=== PATIENT | female | born 1960 | race Caucasian/White ===

== ENCOUNTER 2020-03-24 15:05 | Outpatient (CLI) | payer MEDICARE, MEDICAID, SELFPAY ==
--- NOTE | 2020-03-24 15:11 | USCV_ITS ---
Bradley Farley Age: 60 Gender: F : 1960 Exam Date: 03/24/2020 14:56 Ordering Phys: Jared Braun Technologist: Rosa Elena Lopez Exam Location: [facility] [place] Indication: PAD RIGHT LEFT Pressure (mmHg) Waveform Pressure (mmHg) Waveform 103.00 Above Knee 97.00 Below Knee 1.11 110.00 DIRT CONTRACTOR 105.00 101.00 DPA 103.00 1.18 Ankle/Brachial Index 1.13 0.38 Pre-Exercise Toe Pressure 0.73 FINDINGS Pt could not tolerate the upper lt thigh cuff. Normal resting ABIs bilaterally Normal resting TBI on the left side Diminished resting TBI on the right side CONCLUSIONS No significant arterial obstruction on the left side Features suggestive of moderate peripheral artery disease possibly involving the distal vessels on the right side Dr Ralph Das MD FAC (Electronically Signed) Final Date: 24 March 2020 19:53 S
== END 2020-03-24 15:06 | disposition home or self-care (01) ==
LOC: RAD 15:08
PROVIDERS: PCP Family Medicine; Visit Provider Internal Medicine Infectious Disease
DX: I73.9 Peripheral vascular disease, unspecified (principal)
CPT/HCPCS: 93923

== ENCOUNTER 2022-05-17 22:56 | Emergency (ER) | payer MEDICARE, MEDICAID, SELFPAY ==
--- NOTE | 2022-05-17 22:57 | CTR_ITS ---
PROCEDURE INFORMATION: Exam: CT Head Without Contrast Exam date and time: 05/18/2022 2:11 AM Age: 62 years old Clinical indication: Altered mental status/memory loss; Additional info: AMS TECHNIQUE: Imaging protocol: Computed tomography of the head without contrast. Radiation optimization: All CT scans at this facility use at least one of these dose optimization techniques: automated exposure control; mA and/or kV adjustment per patient size (includes targeted exams where dose is matched to clinical indication); or iterative reconstruction. COMPARISON: CT head wo con* [id number] 04/04/2019 18:21 RADIATION DOSE METRICS: Total DLP (mGy-cm): 1145.68 FINDINGS: Brain: No focal hemorrhage or midline shift is identified. The ventricles and parenchyma show mild atrophy and chronic bicerebral white matter ischemic change. Cerebral ventricles: No ventriculomegaly or evidence of hydrocephalus. Paranasal sinuses: No evidence of acute sinusitis. Mastoid air cells: Visualized mastoid air cells are well aerated. Bones/joints: No displaced skull fracture is noted. Soft tissues: Unremarkable. Vasculature: Diffuse vascular calcifications are present. CT/CT head wo con* [id number] IMPRESSION: 1. No acute intracranial abnormality. 2. Mild age-related changes.
--- NOTE | 2022-05-17 22:57 | XRR_ITS ---
PROCEDURE INFORMATION: Exam: XR Chest Exam date and time: 05/17/2022 11:07 PM Age: 62 years old Clinical indication: Other: AMS TECHNIQUE: Imaging protocol: Radiologic exam of the chest. Views: 1 view. COMPARISON: CR XR chest 1V [id number] 04/02/2018 11:45 AM FINDINGS: Lungs: Unremarkable. No consolidation. Pleural spaces: Unremarkable. No pleural effusion. No pneumothorax. Heart/Mediastinum: Unremarkable. No cardiomegaly. Bones/joints: Unremarkable. XR/XR chest 1V portable [id number] IMPRESSION: No acute findings.
[2022-05-17 22:58] VITALS: BP 92/58; PULSE 84; RESP 24; TEMP 34.7; O2SAT 92; BMI 17.6
--- NOTE | 2022-05-17 23:02 | ECG_ITS ---
[facility] Test Date: 2022-05-17 Pat Name: Bradley Farley Department: Room: Gender: Female Feeder Loader: : 1960 Requested By: Billy Lewis Order Number: [id number] Nilesh MD: Abbi Pennington M.D. Measurements Intervals [place] Rate: 87 P: 71 MN: 124 QRS: 72 QRSD: 102 T: 82 QT: 450 QTc: 542 Interpretive Statements SINUS RHYTHM VOLTAGE CRITERIA FOR LVH [MEETS CRITERIA IN ONE OF: R(aVL), S(V1), R(V5), R(V5/V6)+S(V1)] MODERATE ST DEPRESSION [0.05+ mV ST DEPRESSION] PROLONGED QT INTERVAL Compared to ECG 04/01/2018 21:36:13 ST (T wave) deviation now present Prolonged QT interval now present Electronically Signed On 05-18-2022 9:16:15 WEBBING SUPERVISOR by Abbi Pennington M.D. [id number]
--- NOTE | 2022-05-17 23:07 | ED_ITS ---
HPI - Altered Mental Status General: Chief Complaint: Altered Mental Status Stated Complaint: AMS Time Seen by Provider: 05/17/22 22:57 Source: patient and EMS Mode of arrival: EMS Limitations: no limitations History of Present Illness: 62-year-old female is brought here by EMS got called out for general sickness and found her she was patient here is unresponsive from the ketamine not able to get any history they state that patient lived in a trailer with no electricity and the person there was not able to give much history either besides that she was not feeling well all day on the bathroom floor not really responding she then became combative is been confused they had to give her ketamine in route. Review of Systems General: Reports: ROS unobtainable due to mental status PFSH ED PFSH: Social History Smoking and tobacco status: current every day smoker Procedures Central Line Placement Right IJ: Time Out Performed: Yes Patient Placed on Monitor/Pulse Ox: Yes MD Prep: mask, gown and gloves Central Line Prep: Chlorhexidine scrub Ultrasound Used for Placement: Yes Central Line Lumen Inserted: triple Post Procedure: sutured in place, good blood return, all ports aspirated, flushed, capped and sterile dressing applied Post Procedure X-Ray: tip of catheter in good position and no pneumothorax seen Patient Tolerated Procedure: well Complications: none Intubation Time out performed: Yes sedative: Etomidate Mg Given: 20 paralytic: Succinylcholine Mg Given: 75 Laryngoscope: Edgar ET Tube Size: 8 ET Tube Uncuffed: No Tube Secured Depth (cm): 26 Tube Secured Location: lips Tube Placement Confirmation: visualized tube passing through cords, equal breath sounds bilaterally, no breath sounds over epigastrium and confirmation by capnometry Patient Tolerated Procedure: well Intubation Complications: none Course Vital Signs: Vital signs: Vital Signs Temperature 94.4 F L 05/17/22 22:58 Pulse Rate 84 05/17/22 22:58 Respiratory Rate 30 H 05/18/22 01:08 Blood Pressure 92/58 05/17/22 22:58 Pulse Oximetry 92 05/17/22 22:58 Fraction of Inspir ed Oxygen 30 05/18/22 01:08 MDM - Altered Mental Status Medical Decision Making Patient originally presented here with some confusion and agitation altered mental status her drug screen was positive for methamphetamine she would answer some questions but became combative patient was given ketamine in route I had to intubate her as she would not stay still for any testing patient was normotensive after intubation and propofol drip to keep her sedated she became hypotensive central line was placed patient placed on Levophed she was taken to CT scan therefore after she does have a UTI with an elevated lactate on the CT scan she was found to have an intra-abdominal hemorrhage. No history was really available from EMS no known assault but does appear to have a possible splenic lack on her CT patient's hemoglobin originally was 9.2 we will give blood at this time [facility] Lab Data 05/18/22 00:13 05/17/22 23:23 Radiology Impressions Duplex Scan Lower Extremity Artery 05/17/22 23:10 IMPRESSION: No stenosis or occlusion. Chest/Abdomen/Pelvis CT 05/18/22 00:38 IMPRESSION: 1. The endotracheal tube tip is at the erwin deviating towards the right mainstem bronchus. 2. There is a background of centrilobular emphysema, mild bronchiectasis and mild pulmonary fibrosis. 3. There are some patchy and strandy opacities present in the lung bases bilaterally, left slightly more prominent than right likely representing atelectasis. 4. There is a small left pleural effusion seen. IMPRESSION: 1. There is an extensive retroperitoneal and intra-abdominal and pelvic hematoma and hemorrhagic fluid collection as described above. 2. There is a small hypoattenuation subcapsular lesions seen within the spleen that could represent a benign cyst or hemangioma. However, its attenuation values are isodense with the adjacent hemorrhagic fluid and a splenic laceration cannot be excluded (AAST grade 1). 3. Diverticulosis of the descending and sigmoid colon ADDENDUM: 05/18/22 0303 CRITICAL RESULT: THIS REPORT CONTAINS FINDINGS THAT MAY BE CRITICAL TO PATIENT CARE. The findings were verbally communicated via telephone conference with REGULO Hagan at 3:01 AM GROUP THERAPY COUNSELOR on 05/18/2022. The findings were acknowledged and understood. Chest X-Ray 05/18/22 01:05 IMPRESSION: 1. Right internal jugular vein central venous line placed with tip at the level of the superior vena cava. 2. Endotracheal tube tip 2.2 cm from the erwin. Laboratory Results WBC 15.8 10^3/uL (4.0-10.0) H 05/18/22 00:13 RBC 3.10 10^6/uL (4.1-5.3) L 05/18/22 00:13 Hgb 9.1 g/dL (11.5-15.3) L 05/18/22 00:13 Hct 28.2 % (37.0-47.0) L 05/18/22 00:13 MCV 91.0 fl (81-99) 05/18/22 00:13 MCH 29.4 pg (28.0-34.0) 05/18/22 00:13 MCHC 32.3 g/dL (30.0-36.0) 05/18/22 00:13 RDW 12.5 % (12.1-15.1) 05/18/22 00:13 Plt Count 229 10^3/cmm (130-400) 05/18/22 00:13 MPV 9.6 fL (7.4-10.4) 05/18/22 00:13 Neut % (Auto) 89.5 % 05/18/22 00:13 Lymph % (Auto) 5.9 % 05/18/22 00:13 [place] % (Auto) 3.2 % 05/18/22 00:13 Eos % (Auto) 0.1 % 05/18/22 00:13 Baso % (Auto) 0.3 % 05/18/22 00:13 Neut # (Auto) 14.17 10^3/uL (1.8-7.7) H 05/18/22 00:13 Lymph # (Auto) 0.9 10^3/uL (0.8-4.8) 05/18/22 00:13 [place] # (Auto) 0.5 10^3/uL (0.2-0.9) 05/18/22 00:13 Eos # (Auto) 0.0 10^3/uL (0.0-0.8) 05/18/22 00:13 Baso # (Auto) 0.0 10^3/uL (0.0-0.1) 05/18/22 00:13 Nucleated RBC % (auto) 0 % 05/18/22 00:13 Nucleated RBCs # 0.0 /100WBC 05/18/22 00:13 PT 15.10 SECONDS (12.1-14.9) H 05/17/22 23:23 INR 1.15 (0.8-1.2) 05/17/22 23:23 Specimen Type Arterial 05/17/22 23:59 Sample Site Femoral, left 05/17/22 23:59 ABG pH 7.30 (7.35-7.45) L 05/17/22 23:59 ABG pCO2 35.4 mmHg (35-45) 05/17/22 23:59 ABG pO2 137.0 mmHg (80.0-100.0) H 05/17/22 23:59 ABG HCO3 17.3 mmol/L (22-26) L 05/17/22 23:59 ABG Base Excess -8.4 mmol/L (-2.0-2.0) L 05/17/22 23:59 Lester Test N/a 05/17/22 23:59 Hematocrit 31.1 % (37-47) L 05/17/22 23:59 O2 Delivery Device Nc 05/17/22 23:59 O2 Liters/Min 2.0 % 05/17/22 23:59 Educational Program Assistant ID Castro 05/17/22 23:59 Sodium 128 mmol/L (136-145) L 05/17/22 23:23 Potassium 3.4 mmol/L (3.5-5.1) L 05/17/22 23:23 Chloride 87 mmol/L (98-107) L 05/17/22 23:23 Carbon Dioxide 15 mmol/L (22-29) L 05/17/22 23:23 Anion Gap 29.4 (5-19) H 05/17/22 23:23 BUN 18 mg/dL (8-23) 05/17/22 23:23 Creatinine 1.4 mg/dL (0.5-0.9) H 05/17/22 23:23 GFR Calculation 37.9 mL/min (90-130) L 05/17/22 23:23 Glucose 292 mg/dL (65-115) H 05/17/22 23:23 Calculated Osmolality 279 mOsm/kg (285-295) L 05/17/22 23:23 Lactate 8.6 mmol/L (0.5-2.2) H* 05/18/22 01:53 Calcium 8.4 mg/dL (8.5-10.5) L 05/17/22 23: Magnesium 2.3 mg/dL (1.7-2.3) 05/17/22 23: Total Bilirubin 0.3 mg/dL (0.15-1.2) 05/17/22 23: AST 29 U/L (0-32) 05/17/22 23: ALT 24 U/L (0-33) 05/17/22 23: Alkaline Phosphatase 57 U/L (35-105) 05/17/22 23: Creatine Kinase 116 U/L (26-192) 05/17/22 23: Troponin T Baseline 33 ng/L (0-10) H 05/17/22 23: Troponin T 120 Minute 59.50 ng/L (0-10) H 05/18/22 01: Delta Troponin T 26.50 ABS# (0-10) H* 05/18/22 01: Total Protein 5.8 g/dL (6.6-8.7) L 05/17/22: Albumin 3.6 g/dL (3.5-5.2) 05/17/22: Globulin 2.2 g/dL (1.3-4.6) 05/17/22: TSH 3.49 uIU/mL (0.27-4.20) 05/17/22 23: Urine Color Yellow (Yellow) 05/17/22 23:05 Urine Appearance Hazy (CLEAR) A 05/17/22 23: Urine pH 6 (5-7) 05/17/22 23:05 Ur Specific [place] 1.020 (1.005-1.030) 05/17/22 23:05 Urine Protein 3+ (Negative) H 05/17/22 23:05 Urine Glucose (UA) Norm (Normal) 05/17/22 23:05 Urine Ketones Negative (Negative) 05/17/22 23:05 Urine Blood 3+ (Negative) H 05/17/22 23:05 Urine Nitrate Negative (Negative) 05/17/22 23:05 Urine Bilirubin Neg (Negative) 05/17/22 23: Urine Urobilinogen Norm mg/dL (Negative) 05/17/22 23:05 Ur Leukocyte Esterase 2+ (Negative) H 05/17/22 23:05 Urine RBC 0-4 /hpf (0-2) H 05/17/22 23:05 Urine WBC 40-55 /hpf (0-5) H 05/17/22 23:05 Ur Squamous Epith Cells 0-4 /hpf (0-5) H 05/17/22 23:05 Amorphous Sediment Not Reportable 05/17/22 23:05 Urine Bacteria 4+ /hpf (NONE) H 05/17/22 23:05 Salicylates < 0.3 mg/dL (3-10) L 05/17/22 23:23 Urine Opiates Screen Negative ng/mL (Negative) 05/17/22 23:05 Acetaminophen < 5.0 ug/mL (10-30) L 05/17/22 23:23 Ur Barbiturates Screen Negative ng/mL (Negative) 05/17/22 23:05 Ur Phencyclidine Scrn Negative ng/mL (Negative) 05/17/22 23:05 Ur Amphetamines Screen Positive ng/mL (Negative) H 05/17/22 23:05 U Benzodiazepines Scrn Negative ng/mL (Negative) 05/17/22 23:05 Urine Cocaine Screen Negative ng/mL (Negative) 05/17/22 23:05 U Marijuana (THC) Screen Positive ng/mL (Negative) H 05/17/22 23:05 Ethyl Alcohol < 10 mg/dL (0-10) 05/17/22 23:23 Serum Ketones Negative (Negative) 05/18/22 00:13 Influenza Type A Ag negative (Negative) 05/17/22 23:17 Influenza Type B Ag negative (Negative) 05/17/22 23:17 SARS-CoV-2 Ag (Rapid) negative (Negative) 05/17/22 23:17 Critical Care Time Critical Care Time: Critical Care Time: Yes Total Critical Care Time: 75 Attestation: The high probability of a clinically significant, sudden or life threatening deterioration of the patient's cv system(s) required my full and direct attention, intervention and personal management. The critical care time is as shown. This time is in addition to time spent performing any reported procedures but includes the following: [x] Data and vital sign review and interpretation [x] Patient assessment, examination and intervention [x] Documentation [x] Medication orders and management Discharge Plan Discharge Patient Disposition: Xfer Short-Term Hosp Clinical Impression: Altered mental status, Methamphetamine abuse, UTI (urinary tract infection), Acidosis, lactic, Intra abdominal hemorrhage Condition: Stable Prescriptions: No Action clonidine HCl 0.1 mg tablet See Rx Instructions .ROUTE .COMPLEX Qty: 60 0RF Dose Instruction: TAKE ONE TABLET BY MOUTH TWICE DAILY Rx Instructions: TAKE ONE TABLET BY MOUTH TWICE DAILY nifedipine 90 mg tablet extended release See Rx Instructions .ROUTE .COMPLEX Qty: 30 0RF Dose Instruction: TAKE ONE TABLET BY MOUTH EVERY DAY Rx Instructions: TAKE ONE TABLET BY MOUTH EVERY DAY risperidone 0.5 mg tablet See Rx Instructions .ROUTE .COMPLEX Qty: 90 0RF Dose Instruction: TAKE ONE TABLET BY MOUTH EVERY MORNING AND TWO tablets EVERY EVENING Rx Instructions: TAKE ONE TABLET BY MOUTH EVERY MORNING AND TWO tablets EVERY EVENING venlafaxine 150 mg capsule,extended release 24hr See Rx Instructions .ROUTE .COMPLEX Qty: 30 0RF Dose Instruction: TAKE ONE CAPSULE BY MOUTH DAILY with 75 MG Rx Instructions: TAKE ONE CAPSULE BY MOUTH DAILY with 75 MG atenolol 50 mg tablet See Rx Instructions .ROUTE .COMPLEX Qty: 60 0RF Dose Instruction: TAKE ONE TABLET BY MOUTH TWICE DAILY Rx Instructions: TAKE ONE TABLET BY MOUTH TWICE DAILY venlafaxine 75 mg capsule,extended release 24hr See Rx Instructions .ROUTE .COMPLEX Qty: 30 0RF Dose Instruction: TAKE ONE CAPSULE BY MOUTH DAILY with 150mg Rx Instructions: TAKE ONE CAPSULE BY MOUTH DAILY with 150mg celecoxib 200 mg capsule See Rx Instructions .ROUTE .COMPLEX Qty: 30 0RF Dose Instruction: TAKE ONE CAPSULE BY MOUTH EVERY DAY Rx Instructions: TAKE ONE CAPSULE BY MOUTH EVERY DAY Referrals: Gricelda Boucher MD [Primary Care Provider] - Coding Level of Care Code ED Assessment Coordinator for Shani Dallas
--- NOTE | 2022-05-17 23:10 | USR_ITS ---
PROCEDURE INFORMATION: Exam: US Duplex Lower Extremity Arteries Exam date and time: 05/17/2022 11:19 PM Age: 62 years old Clinical indication: Pain; Leg, lower; Bilateral; Additional info: Leg pain TECHNIQUE: Imaging protocol: Real-time ultrasound scan of the arteries of the bilateral lower extremities with 2-D ngo scale, color Doppler flow and spectral waveform analysis. Images documented and saved. COMPARISON: MRI Leg w/wo LEFT [id number] 03/20/2016 11:05 AM FINDINGS: Right common femoral artery: No occlusion or significant stenosis. Normal waveform. Right superficial femoral artery: No occlusion or significant stenosis. Normal waveform. Right popliteal artery: No occlusion or significant stenosis. Normal waveform. Right calf/foot arteries: No occlusion or significant stenosis in the visualized arteries. Biphasic waveform of the posterior tibial artery. Dorsalis pedis artery is patent with monophasic waveform. Left common femoral artery: No occlusion or significant stenosis. Normal waveform. Left superficial femoral artery: No occlusion or significant stenosis. Normal waveform. Left popliteal artery: No occlusion or significant stenosis. Normal waveform. Left calf/foot arteries: No occlusion or significant stenosis in the visualized arteries. Dorsalis pedis artery is patent. Biphasic waveforms of the posterior tibial and dorsalis pedis arteries. US/[place] [id number] IMPRESSION: No stenosis or occlusion.
[2022-05-17] MEDS: sodium chloride 0.9% 1,000 ML 999 ML IV (23:28)
[2022-05-17 23:30] VITALS: BP 111/70; PULSE 102; RESP 19; O2SAT 100
[2022-05-17 23:43] LABS: INR 1.15 (0.8-1.2)
[2022-05-17 23:53] LABS: Troponin(5th) Baseline 33 ng/L (0-10)
[2022-05-17] MEDS: haloperidol inj 5 mg/mL INJ 1 mL IVP (23:53)
[2022-05-17] MEDS: LORazepam 2 mg/mL INJ 1 mL 1 MG IVP (23:54)
[2022-05-18] VITALS (15 sets, daily range): BP systolic 63–147; BP diastolic 42–90; PULSE 82–105; RESP 14–30; TEMP 33–34.8; O2SAT 94–100
[2022-05-18 00:03] LABS: Influenza A by IFA negative (Negative); Influenza B by IFA negative (Negative); SARS Covid-2 Antigen negative (Negative)
[2022-05-18 00:05] LABS: Alanine Aminotransferase 24 U/L (0-33); Albumin Level 3.6 g/dL (3.5-5.2); Alkaline Phosphatase 57 U/L (35-105); Aspartate Amino Transferase 29 U/L (0-32); Blood Urea Nitrogen 18 mg/dL (8-23); Calcium 8.4 mg/dL (8.5-10.5); Carbon Dioxide 15 mmol/L (22-29); Chloride 87 mmol/L (98-107); Creatine Phosphokinase 116 U/L (26-192); Globulin 2.2 g/dL (1.3-4.6); Glomerular Filtration Rate 37.9 mL/min (90-130); Glucose 292 mg/dL (65-115); Magnesium 2.3 mg/dL (1.7-2.3); Osmolality Calculated 279 mOsm/kg (285-295); Sodium 128 mmol/L (136-145); Thyroid Stimulating Hormone 3.49 uIU/mL (0.27-4.20); Total Bilirubin 0.3 mg/dL (0.15-1.2); Total Protein 5.8 g/dL (6.6-8.7)
[2022-05-18 00:07] LABS: Acetaminophen < 5.0 ug/mL (10-30); Alcohol Level < 10 mg/dL (0-10); Anion Gap 29.4 (5-19); Potassium 3.4 mmol/L (3.5-5.1); Salicylate < 0.3 mg/dL (3-10)
[2022-05-18 00:18] LABS: Basophils % 0.3 %; Eosinophils % 0.1 %; Hematocrit 28.2 % (37.0-47.0); Hemoglobin 9.1 g/dL (11.5-15.3); Lymphocytes # 0.9 10^3/uL (0.8-4.8); Lymphocytes % 5.9 %; Mean Corpuscular HGB Conc 32.3 g/dL (30.0-36.0); Mean Corpuscular Hemoglobin 29.4 pg (28.0-34.0); Mean Platelet Volume 9.6 fL (7.4-10.4); Monocytes # 0.5 10^3/uL (0.2-0.9); Monocytes % 3.2 %; Neutrophils # 14.17 10^3/uL (1.8-7.7); Neutrophils % 89.5 %; Nucleated Red Blood Cells % 0 %; Platelet Count 229 10^3/cmm (130-400); Red Cell Distribution Width 12.5 % (12.1-15.1); White Blood Count 15.8 10^3/uL (4.0-10.0)
[2022-05-18 00:31] LABS: Ketone (Acetest) Serum Negative (Negative)
--- NOTE | 2022-05-18 00:38 | CTR_ITS ---
PROCEDURE INFORMATION: Exam: CT Chest With Contrast; Diagnostic Exam date and time: 05/18/2022 2:18 AM Age: 62 years old Clinical indication: Other: AMS; Patient HX: Patient sedated and intubated, in full restraints TECHNIQUE: Imaging protocol: Diagnostic computed tomography of the chest with contrast. Radiation optimization: All CT scans at this facility use at least one of these dose optimization techniques: automated exposure control; mA and/or kV adjustment per patient size (includes targeted exams where dose is matched to clinical indication); or iterative reconstruction. Contrast material: OMNI 350; Contrast volume: 70 ml; Contrast route: INTRAVENOUS (IV); COMPARISON: CR (CHEST, ) 05/18/2022 1:08 AM RADIATION DOSE METRICS: Total DLP (mGy-cm): 262.1 FINDINGS: Tubes, catheters and devices: The endotracheal tube tip is at the erwin directed to the right mainstem bronchus. Lungs: There is a background of centrilobular emphysema and mild bronchiectasis. Pulmonary fibrosis seen. There patchy and hazy opacities present in the lung bases bilaterally, left more prominent than right likely representing atelectasis. Pleural spaces: Small left pleural effusion Heart: Unremarkable. No cardiomegaly. No pericardial effusion. Coronary arteries: Mild coronary artery calcifications are seen. Lymph nodes: Unremarkable. No enlarged lymph nodes. Vasculature: Unremarkable. No aortic aneurysm. Bones/joints: Unremarkable. No acute fracture. Soft tissues: Unremarkable. COMMENTS: In the absence of a history or active diagnosis of lung cancer, it is recommended that this patient with emphysema be evaluated for enrollment in a low dose CT lung cancer screening program. PROCEDURE INFORMATION: Exam: CT Abdomen And Pelvis With Contrast Exam date and time: 05/18/2022 2:18 AM Age: 62 years old Clinical indication: Other: AMS; Patient HX: Patient sedated and intubated, in full restraints TECHNIQUE: Imaging protocol: Computed tomography of the abdomen and pelvis with contrast. Radiation optimization: All CT scans at this facility use at least one of these dose optimization techniques: automated exposure control; mA and/or kV adjustment per patient size (includes targeted exams where dose is matched to clinical indication); or iterative reconstruction. Contrast material: OMNI 350; Contrast volume: 70 ml; Contrast route: INTRAVENOUS (IV); COMPARISON: CR (CHEST, ) 05/18/2022 1:08 AM RADIATION DOSE METRICS: Total DLP (mGy-cm): 469.6 FINDINGS: Tubes, catheters and devices: A Rose catheter is present. Liver: Normal. No mass. Gallbladder and bile ducts: Normal. No calcified stones. No ductal dilation. Pancreas: Normal. No ductal dilation. Spleen: There is a small hypoattenuation lesions seen in the posterosuperior aspect of the spleen that may represent a contiguous cyst. However, the attenuation values are isodense with the adjacent hemorrhagic fluid and a splenic laceration cannot be excluded (AAST grade 1). Adrenal glands: Normal. No mass. Kidneys and ureters: Normal. No hydronephrosis. Stomach and bowel: Diverticula are seen on the descending and sigmoid colon. There are no inflammatory changes seen to suggest diverticulitis. Appendix: No evidence of appendicitis. Intraperitoneal space: See Soft tissues finding. Vasculature: Unremarkable. No abdominal aortic aneurysm. Lymph nodes: Unremarkable. No enlarged lymph nodes. Urinary bladder: The bladder appears decompressed. Reproductive: Unremarkable as visualized. Bones/joints: Unremarkable. No acute fracture. Soft tissues: There is mixed attenuation fluid seen within the retroperitoneal fat and fascia (62 HU) compatible with hemorrhagic fluid. Mixed attenuation fluid is seen within the abdomen on the left extending to the level of the left iliac crest compatible with prominent intra-abdominal hematoma. Overall, the hematoma extends approximately 19.7 cm craniocaudal dimension by 9.3 cm AP dimension and 9.2 cm transverse dimension. Intermediate attenuation fluid is seen within left pericolic gutter extending into the pelvis ([address]). CT/CT chest abd pel w con* IMPRESSION: 1. The endotracheal tube tip is at the erwin deviating towards the right mainstem bronchus. 2. There is a background of centrilobular emphysema, mild bronchiectasis and mild pulmonary fibrosis. 3. There are some patchy and strandy opacities present in the lung bases bilaterally, left slightly more prominent than right likely representing atelectasis. 4. There is a small left pleural effusion seen. IMPRESSION: 1. There is an extensive retroperitoneal and intra-abdominal and pelvic hematoma and hemorrhagic fluid collection as described above. 2. There is a small hypoattenuation subcapsular lesions seen within the spleen that could represent a benign cyst or hemangioma. However, its attenuation values are isodense with the adjacent hemorrhagic fluid and a splenic laceration cannot be excluded (AAST grade 1). 3. Diverticulosis of the descending and sigmoid colon
[2022-05-18 00:41] LABS: ABG PCO2 35.4 mmHg (35-45); Arterial Blood Gas Hematocrit 31.1 % (37-47); Base Excess ABG -8.4 mmol/L (-2.0-2.0); Blood Gas Operator Identificat JB; Blood Gas Sample Site Femoral, left; Blood Gas Sample Type Arterial; HCO3 ABG 17.3 mmol/L (22-26); Oxygen Device NC
[2022-05-18] MEDS: etomidate 2 mg/mL INJ SDV 10 mL 20 MG IVP (00:47)
[2022-05-18] MEDS: succinylcholine 20 mg/mL SDV 10mL 75 MG IVP (00:48)
[2022-05-18] MEDS: propofol 1,000 MG/100 ML INJ 1.36 MG IV (00:58)
--- NOTE | 2022-05-18 01:05 | XRR_ITS ---
PROCEDURE INFORMATION: Exam: XR Chest Exam date and time: 05/18/2022 1:08 AM Age: 62 years old Clinical indication: Other vascular access device placement or adjustment; Central line, non-tunnelled TECHNIQUE: Imaging protocol: Radiologic exam of the chest. Views: 1 view. COMPARISON: CR (CHEST, ) 05/17/2022 11:07 PM FINDINGS: Tubes, catheters and devices: An endotracheal tube is placed with its tip 2.2 cm from the erwin. A right internal jugular vein central venous line is placed with its tip at the level of the superior vena cava. EKG leads overlie the chest. Lungs: Unremarkable. No consolidation. Pleural spaces: Unremarkable. No pleural effusion. No pneumothorax. Heart/Mediastinum: Unremarkable. No cardiomegaly. Bones/joints: Unremarkable. XR/XR chest 1V portable [id number] IMPRESSION: 1. Right internal jugular vein central venous line placed with tip at the level of the superior vena cava. 2. Endotracheal tube tip 2.2 cm from the erwin.
--- NOTE | 2022-05-18 01:13 | ECG_ITS ---
[facility] Test Date: 2022-05-18 Pat Name: Bradley Farley Department: Room: Gender: Female Hvac Design Engineer: : 1960 Requested By: Billy Lewis Order Number: [id number] Nilesh MD: Abbi Pennington M.D. Measurements Intervals [place] Rate: 103 P: 76 NM: 105 QRS: 78 QRSD: 90 T: 86 QT: 389 QTc: 512 Interpretive Statements SINUS TACHYCARDIA WITH SHORT NM INTERVAL MODERATE VOLTAGE CRITERIA FOR LVH, CONSIDER NORMAL VARIANT MODERATE ST DEPRESSION [0.05+ mV ST DEPRESSION] Compared to ECG 05/17/2022 23:02:27 Short NM interval now present Sinus rhythm no longer present Prolonged QT interval no longer present ST (T wave) deviation still present Electronically Signed On 05-18-2022 9:19:23 SALES AMBASSADOR by Abbi Pennington M.D. [id number]
[2022-05-18] MEDS: sodium chloride 0.9% 1,000 ML 999 ML IV (01:39)
[2022-05-18 01:42] LABS: Add Urine Culture? Yes; Add Urine Microscopic? YES; Bacteria Urine 4+ /hpf; Bilirubin Urine Neg (Negative); Blood Urine 3+ (Negative); Glucose Urine UA Norm (Normal); Ketones Urine Negative (Negative); Leukocyte Esterase Urine 2+ (Negative); Nitrate Urine Negative (Negative); Protein Urine 3+ (Negative); RBC Urine 0-4 /hpf (0-2); Squamous Epithelial Cell Urine 0-4 /hpf (0-5); Urine Appearance Hazy (CLEAR); Urine Color Yellow (Yellow); Urobilinogen Urine Norm (Negative); WBC Urine 40-55 /hpf (0-5); pH Urine 6 (5-7)
[2022-05-18 01:47] LABS: Amphetamines Screen Urine Positive (Negative); Barbiturates Screen Urine Negative (Negative); Benzodiazepines Screen Urine Negative (Negative); Cocaine Screen Urine Negative (Negative); Opiate Screen Urine Negative (Negative); PCP Screen Urine Negative (Negative); THC Screen Urine Positive (Negative)
[2022-05-18] MEDS: vecuronium 10 mg SDV 5 MG IVP (01:50)
[2022-05-18 02:31] LABS: Lactate (Lactic Acid level) 8.6 mmol/L (0.5-2.2)
[2022-05-18] MEDS: iohexol 350 mg/mL 500 mL Btl (per mL) IV (02:32)
[2022-05-18] MEDS: vancomycin 1,000 MG in sodium chloride 0.9% 250 ML 250 MG IV (03:00)
[2022-05-18 03:11] LABS: Hematocrit 22.3 % (37.0-47.0); Hemoglobin 7.3 g/dL (11.5-15.3)
[2022-05-18] MEDS: piperacillin-tazobactam 3.375 GM in sodium chloride 0.9% (plus) 50 ML IV (03:48)
== END 2022-05-18 04:27 | disposition short-term general hospital (02) ==
PROVIDERS: Emergency Provider Emergency Medicine; PCP Family Medicine
DX: R41.82 Altered mental status, unspecified (principal); F15.10 Other stimulant abuse, uncomplicated; N39.0 Urinary tract infection, site not specified; E87.20 Acidosis, unspecified; R58 Hemorrhage, not elsewhere classified; Z20.822 Contact with and (suspected) exposure to COVID-19; F17.210 Nicotine dependence, cigarettes, uncomplicated
CPT/HCPCS: 31500; 36415; 36556; 36600; 51702; 70450; 71045; 71260; 74177; 80053; 80306; 80307; 81001; 82009; 82550; 82803; 83605; 83735; 84443; 84484; 85014; 85018; 85025; 85610; 86920; 87040; 87077; 87086; 87186; 87426; 87804; 93005; 93925; 94002; 96365; 96366; 96367; 96375; 99291; J0330; J1630; J2060; J2543; J2704; J3010; J3370; J3490; J7030; J7050; J7060; P9016; Q9967